=== PATIENT | female | born 1960 | race Caucasian/White ===

== ENCOUNTER 2017-06-26 22:59 | Emergency (ER) | payer BC ==
[2017-06-27] MEDS: NS 0.9% 1000 ML* 2,000 ML IV ONE ×2 (03:57→05:10)
[2017-06-27 04:11] LABS: Hematocrit 39 % (35-47); Hemoglobin 12.9 g/dl (12.0-16.0); Mean Corpuscular HGB Conc 33 g/dl (31-36); Mean Corpuscular Hemoglobin 29 pg (27-31); Mean Corpuscular Volume 89 fL (80-97); Mean Platelet Volume 8 um3 (7.4-10.4); Red Blood Count 4.39 10^6/ul (4.0-5.4); Red Cell Distribution Width 14 % (10.5-15); White Blood Count 6.1 10^3/ul (3.5-10.8)
[2017-06-27] MEDS ORDERED: Ibuprofen TAB* 600 MG PO ONE (04:11)
[2017-06-27] MEDS ORDERED: Ibuprofen TAB* 600 MG ONE (04:13)
[2017-06-27 04:21] LABS: ALT 18 U/L (7-52); AST 17 U/L (13-39); Albumin 4.1 g/dL (3.2-5.2); Alkaline Phosphatase 70 U/L (34-104); Amylase 31 U/L (29-103); Anion Gap 7 mmol/L (2-11); BUN/Creatinine Ratio 17.6 (8-20); Blood Urea Nitrogen 13 mg/dL (6-24); C Reactive Protein < 1.00 mg/L (< 5.00); CO2 Carbon Dioxide 27 mmol/L (22-32); Calcium 9.1 mg/dL (8.6-10.3); Chloride 105 mmol/L (101-111); EGFR Non-African American 80.9 (>60); Globulin 2.4 g/dL (2-4); Glucose 107 mg/dL (70-100); Lipase 15 U/L (11.0-82.0); Potassium 3.5 mmol/L (3.5-5.0); Sodium 139 mmol/L (133-145); Total Protein 6.5 g/dL (6.4-8.9)
[2017-06-27 04:28] LABS: Urine Bacteria Absent (Absent)
[2017-06-27 04:30] LABS: Urine Bilirubin Negative (Negative); Urine Glucose N (Negative); Urine Nitrite N (Negative)
[2017-06-27] MEDS ORDERED: Iohexol 300* (CONTRAST) 10 ML SDV IV ONE (05:41)
[2017-06-27 06:01] VITALS: BP 114/77
--- NOTE | 2017-06-27 07:41 | ED ---
Jos Red Rebecca, scribed for Santos Flores MD on 06/27/17 at 0305 . Abdominal Pain/Female - HPI Summary HPI Summary: Pt is a 57 y/o F who presents to ED c/o lower abdominal pain. Pain began 3 weeks ago and has been intermittent since onset, typically worse at night. Pain was previously severe, ranked 10/10, though pain has now improved. Patient states that the pain is not always in the same spot, describing the location as "if it is in my stomach, it moves down into my intestines" without radiation to the back. Sx aggravated and alleviated by nothing, unchanged by walking. Additionally c/o abdominal bloating, chills and low grade fever. Denies blood in stool, CP, SOB and dysuria. Last colonoscopy was 7 years ago. No recent illness. Allergies to Sulfa, Amoxicillin and Niacin. - History of Current Complaint Chief Complaint: EDAbdPain Stated Complaint: LOWER ABD PAIN Hx Obtained From: Patient Onset/Duration: Lasting Weeks - 3 weeks, Still Present Timing: Intermittent Episode Lasting Severity Currently: Severe Pain Intensity: 10 Pain Scale Used: 0-10 Numeric Location: Other - Lower abdomen Character: Sharp Aggravating Factor(s): Nothing Alleviating Factor(s): Nothing Associated Signs and Symptoms: Positive: Fever, Other: - Abdominal bloating. Negative: Nausea, Vomiting, Diarrhea Allergies/Adverse Reactions: Allergies Allergy/AdvReac Type Severity Reaction Status Date / Time Pineapple Allergy Intermediate throat Verified 02/24/13 07:47 itchy Amoxicillin Allergy Mild Rash Verified 02/24/13 07:47 Niacin Allergy Mild Flushing Verified 02/24/13 07:47 Sulfa Drugs Allergy Mild Rash Verified 02/24/13 07:47 honeydew Allergy Intermediate throat Uncoded 02/24/13 07:47 itchy bees Allergy local Uncoded 02/24/13 07:47 reaction PMH/Surg Hx/FS Hx/Imm Hx Endocrine/Hematology History: Denies: Hx Diabetes, Hx Thyroid Disease Cardiovascular History: Denies: Hx Hypertension Respiratory History: Denies: Hx Asthma, Hx Chronic Obstructive Pulmonary Disease (COPD) GI History: Denies: Hx Diverticulosis, Hx Ulcer Musculoskeletal History: Denies: Hx Rheumatoid Arthritis, Hx Osteoporosis - OSTEOPENIA - [facility] History [facility] [place] Infectious Disease History: No Infectious Disease History: Denies: Hx Hepatitis, Hx Human Immunodeficiency Virus (HIV), Traveled Outside the [place] in Last 30 Days - Family History Known Family History: Positive: Other - No FHx IBS, Crohn's or ulcerative colitis - Social History Alcohol Use: Daily Substance Use Type: Reports: None Smoking Status (MU): Never Smoked Tobacco Review of Systems Positive: Fever, Chills Negative: Chest Pain Negative: Shortness Of Breath Positive: Abdominal Pain, Other - Abdominal bloating; NEGATIVE: Blood in stool. Negative: Vomiting, Diarrhea, Nausea Negative: dysuria All Other Systems Reviewed And Are Negative: Yes Physical Exam - Summary Physical Exam Summary: The patient is well-nourished in no acute distress and in no acute pain. The skin is warm and dry and skin color reflects adequate perfusion. HEENT: The head is normocephalic and atraumatic. The pupils are equal and reactive. The conjunctivae are clear and without drainage. Nares are patent and without drainage. Mouth reveals moist mucous membranes and the throat is without erythema and exudate. The external ears are intact. The ear canals are patent and without drainage. The tympanic membranes are intact. Neck is supple with full range of motion and non-tender. Respiratory: Chest is non-tender. Lungs are clear to auscultation and breath sounds are symmetrical and equal. Cardiovascular: Hear is regular rate and rhythm. There is no murmur or rub auscultated. There is no peripheral edema and pulses are symmetrical and equal. Abdomen: The abdomen is soft with marked tenderness in the RLQ and LLQ. to palpation, no tenderness to percussion. No pain with flexion of the knee. There are hyperactive bowel sounds heard in all four quadrants and there is no organomegaly palpated. Musculoskeletal: There is no back pain noted and no CVA tenderness. Extremities are non-tender with full range of motion. There is good capillary refill. There is no peripheral edema or calf tenderness elicited. Neurological: Patient is alert and oriented to person, place and time. The patient has symmetrical motor strength in all four extremities. Psychiatric: The patient has an appropriate affect and does not exhibit any anxiety or depression. Triage Information Reviewed: Yes Vital Signs On Initial Exam: Initial Vitals Temp Pulse Resp BP Pulse Ox 97.2 F 62 20 127/85 100 06/26/17 23:12 06/26/17 23:12 06/26/17 23:12 06/26/17 23:12 06/26/17 23:12 Vital Signs Reviewed: Yes Diagnostics - Vital Signs Vital Signs Temp Pulse Resp BP Pulse Ox 06/27/17 01:33 97.8 F 56 125/82 100 06/26/17 23:12 97.2 F 62 20 127/85 100 - Laboratory Lab Results: Lab Results 06/27/17 06/27/17 06/27/17 Range/Units 03:20 03:55 03:55 WBC 6.1 (3.5-10.8) 10^3/ul RBC 4.39 (4.0-5.4) 10^6/ul Hgb 12.9 (12.0-16.0) g/dl Hct 39 (35-47) % MCV 89 (80-97) fL MCH 29 (27-31) pg MCHC 33 (31-36) g/dl RDW 14 (10.5-15) % Plt Count 203 (150-450) 10^3/ul MPV 8 (7.4-10.4) um3 Neut % (Auto) 74.7 (38-83) % Lymph % (Auto) 17.9 L (25-47) % [place] % (Auto) 5.8 (1-9) % Eos % (Auto) 1.1 (0-6) % Baso % (Auto) 0.5 (0-2) % Absolute Neuts (auto) 4.5 (1.5-7.7) 10^3/ul Absolute Lymphs (auto) 1.1 (1.0-4.8) 10^3/ul Absolute Monos (auto) 0.3 (0-0.8) 10^3/ul Absolute Eos (auto) 0.1 (0-0.6) 10^3/ul Absolute Basos (auto) 0 (0-0.2) 10^3/ul Absolute Nucleated RBC 0 10^3/ul Nucleated RBC % 0 Sodium 139 (133-145) mmol/L Potassium 3.5 (3.5-5.0) mmol/L Chloride 105 (101-111) mmol/L Carbon Dioxide 27 (22-32) mmol/L Anion Gap 7 (2-11) mmol/L BUN 13 (6-24) mg/dL Creatinine 0.74 (0.51-0.95) mg/dL Est GFR ( Amer) 104.0 (>60) Est GFR (Non-Af Amer) 80.9 (>60) BUN/Creatinine Ratio 17.6 (8-20) Glucose 107 H (70-100) mg/dL Lactic Acid (0.5-2.0) mmol/L Calcium 9.1 (8.6-10.3) mg/dL Total Bilirubin 0.50 (0.2-1.0) mg/dL AST 17 (13-39) U/L ALT 18 (7-52) U/L Alkaline Phosphatase 70 (34-104) U/L C-Reactive Protein < 1.00 (< 5.00) mg/L Total Protein 6.5 (6.4-8.9) g/dL Albumin 4.1 (3.2-5.2) g/dL Globulin 2.4 (2-4) g/dL Albumin/Globulin Ratio 1.7 (1-3) Amylase 31 (29-103) U/L Lipase 15 (11.0-82.0) U/L Urine Color Straw Urine Appearance Clear Urine pH 5 (5-9) Ur Specific Isabel 1.010 (1.010-1.030) Urine Protein N (Negative) Urine Ketones Negative (Negative) Urine Blood N (Negative) Urine Nitrate N (Negative) Urine Bilirubin Negative (Negative) Urine Urobilinogen N (Negative) Ur Leukocyte Esterase Negative (Negative) Urine WBC (Auto) Trace(0-5/hpf) (Absent) Urine RBC (Auto) Trace(0-2/hpf) (Absent) Urine Bacteria Absent (Absent) Urine Glucose N (Negative) Urine Ascorbic Acid N (Negative) 06/27/17 Range/Units 03:55 WBC (3.5-10.8) 10^3/ul RBC (4.0-5.4) 10^6/ul Hgb (12.0-16.0) g/dl Hct (35-47) % MCV (80-97) fL MCH (27-31) pg MCHC (31-36) g/dl RDW (10.5-15) % Plt Count (150-450) 10^3/ul MPV (7.4-10.4) um3 Neut % (Auto) (38-83) % Lymph % (Auto) (25-47) % [place] % (Auto) (1-9) % Eos % (Auto) (0-6) % Baso % (Auto) (0-2) % Absolute Neuts (auto) (1.5-7.7) 10^3/ul Absolute Lymphs (auto) (1.0-4.8) 10^3/ul Absolute Monos (auto) (0-0.8) 10^3/ul Absolute Eos (auto) (0-0.6) 10^3/ul Absolute Basos (auto) (0-0.2) 10^3/ul Absolute Nucleated RBC 10^3/ul Nucleated RBC % Sodium (133-145) mmol/L Potassium (3.5-5.0) mmol/L Chloride (101-111) mmol/L Carbon Dioxide (22-32) mmol/L Anion Gap (2-11) mmol/L BUN (6-24) mg/dL Creatinine (0.51-0.95) mg/dL Est GFR ( Amer) (>60) Est GFR (Non-Af Amer) (>60) BUN/Creatinine Ratio (8-20) Glucose (70-100) mg/dL Lactic Acid 0.7 (0.5-2.0) mmol/L Calcium (8.6-10.3) mg/dL Total Bilirubin (0.2-1.0) mg/dL AST (13-39) U/L ALT (7-52) U/L Alkaline Phosphatase (34-104) U/L C-Reactive Protein (< 5.00) mg/L Total Protein (6.4-8.9) g/dL Albumin (3.2-5.2) g/dL Globulin (2-4) g/dL Albumin/Globulin Ratio (1-3) Amylase (29-103) U/L Lipase (11.0-82.0) U/L Urine Color Urine Appearance Urine pH (5-9) Ur Specific Isabel (1.010-1.030) Urine Protein (Negative) Urine Ketones (Negative) Urine Blood (Negative) Urine Nitrate (Negative) Urine Bilirubin (Negative) Urine Urobilinogen (Negative) Ur Leukocyte Esterase (Negative) Urine WBC (Auto) (Absent) Urine RBC (Auto) (Absent) Urine Bacteria (Absent) Urine Glucose (Negative) Urine Ascorbic Acid (Negative) Result Diagrams: 06/27/17 03:55 06/27/17 03:55 Lab Statement: Any lab studies that have been ordered have been reviewed, and results considered in the medical decision making process. Abdominal Pain Fem Course/Dx - Course Course Of Treatment: Pt is a 57 y/o F who presents to ED c/o lower abdominal pain. Pain began 3 weeks ago and has been intermittent since onset, typically worse at night. Pain was previously severe, ranked 10/10, though pain has now improved. Patient states that the pain is not always in the same spot, describing the location as "if it is in my stomach, it moves down into my intestines" without radiation to the back. Sx aggravated and alleviated by nothing, unchanged by walking. Additionally c/o abdominal bloating, chills and low grade fever. Denies blood in stool, CP, SOB and dysuria. Last colonoscopy was 7 years ago. No recent illness. Allergies to Sulfa, Amoxicillin and Niacin. UA negative for UTI. In the ED course, pt received fluids and motrin. Pt will be signed out ot Dr. Stahl, pending disposition, awaiting CT Abd/Pel. Elevated BP noted and advised to f/u with PCP. - Diagnoses Differential Diagnosis: Positive: Appendicitis, Bowel Obstruction, Constipation , Diverticulitis, Irritable Bowel Syndrome, Peptic Ulcer Disease Provider Diagnoses: Abdominal pain Discharge - Discharge Plan Condition: Stable Disposition: OTHER Discharge Disposition Comment: Pt will be signed out to Dr. Braswell, pending dispo , awaiting CT Abd/Pel Referrals: Consuelo Geiger [employer] [Primary Care Provider] - The documentation as recorded by the Jos browne Rebecca accurately reflects the service I personally performed and the decisions made by me, Santos Flores MD.
--- NOTE | 2017-06-27 08:27 | RAD ---
CLINICAL HISTORY: Bilateral lower quadrant pain, colitis, appendicitis COMPARISON: None TECHNIQUE: Multiple contiguous axial CT scans were obtained of the abdomen and pelvis after the administration of intravenous contrast. Coronal and sagittal multiplanar reformations are submitted for review. Oral contrast was administered. Delayed images were obtained through the abdomen and pelvis. FINDINGS: LUNG BASES: The lung bases are clear. LIVER: There is a simple cyst of the right lobe of liver. The liver measures 21 cm in long axis. BILE DUCTS: There is no intrahepatic or extrahepatic biliary dilatation. GALLBLADDER: The gallbladder is normal, without pericholecystic inflammatory change. PANCREAS: The pancreas is normal, without mass or ductal dilatation. SPLEEN: Normal in size and appearance. UPPER GI TRACT: Evaluation of the gastrointestinal tract is limited by incomplete gastric distention. The upper GI tract is unremarkable. SMALL BOWEL AND MESENTERY: The small bowel is normal in contour, course, and caliber. There is no obstruction or dilatation. COLON: The colon is normal in contour, course, caliber. There is no pericolonic inflammatory change. The appendix is not clearly visualized. ADRENALS: Normal bilaterally. KIDNEYS: The kidneys are normal in shape, size, contour, and axis. There is no hydronephrosis or nephrolithiasis. BLADDER: The bladder is smooth in contour. PELVIC ORGANS: The uterus is fibroid AORTA: The aorta is normal. IVC: Unremarkable LYMPH NODES: There is no lymphadenopathy by size criteria. ABDOMINAL WALL: There is no evidence for abdominal wall hernia. BONES AND SOFT TISSUES: There are mild diffuse degenerative changes. OTHER: None IMPRESSION: 1. FIBROID UTERUS. 2. THE APPENDIX IS NOT CLEARLY VISUALIZED. 3. HEPATOMEGALY.
--- NOTE | 2017-06-27 13:57 | ED ---
Eros Red Angela, scribed for Alexandre Stahl MD on 06/27/17 at 0721 . Progress - Progress Note Progress Note: Pt is a 57 y/o female who presents to ED c/o intermittent lower abdominal pain x3 weeks. Pt notes her pain is not always on one spot, it travels. This pt was signed out from Dr. Flores, pending disposition, awaiting CT abdomen/ pelvis. Pt will be discharged to home in stable condition with a diagnosis of abdominal pain. - Results/Orders Results/Orders: CT abd/pel IMPRESSION: No bowel obstructions, colitis, diverticulitis, free fluid or free air. Appendix not seen. No pericecal inflammation to suggest acute appendicitis. Unremarkable pancreas, kidneys, and gallbladder. Small probably right hepatic cyst. Hepatomegaly. Small calcified uterine fibroid. ED physician has reviewed this radiology report and agrees. Re-Evaluation - Re-Evaluation First Eval Re-Evaluation Time: 08:08 Comment: I reviewed the CT results with the pt. I spoke to her about following up with GI. Pt agrees with the plan and will be discharged. Course/Dx - Course Course Of Treatment: Pt is a 57 y/o female who presents to ED c/o intermittent lower abdominal pain x3 weeks. Pt notes her pain is not always on one spot, it travels. This pt was signed out from Dr. Flores to follow up on CT abdomen/ pelvis. CT results show no bowel obstructions, colitis, diverticulitis, free fluid or free air. Appendix not seen. No pericecal inflammation to suggest acute appendicitis. Since the bloodwork and the CT are both negative, as per Dr. Flores's recommendations, pt will be discharged to home and is advised to follow up with her PCP. Additionally, I believe the pt will benefit from a GI consult. The pt will be given a referral to GI. Pt is hemodynamically stable, alert and oriented x3. - Diagnoses Provider Diagnoses: Abdominal pain The documentation as recorded by the Eros browne Angela accurately reflects the service I personally performed and the decisions made by me, Alexandre Stahl MD.
== END 2017-06-27 09:55 ==
LOC: ED 22:59
DX: R10.30 Lower abdominal pain, unspecified (principal)
CPT/HCPCS: 36415; 74177; 80053; 81003; 82150; 83605; 83690; 85025; 86140; 99283; A9270-GY; Q9967

== ENCOUNTER 2017-11-08 17:55 | Emergency (ER) | payer BC | END 2017-11-08 20:07 | disposition left against medical advice (07) | LOC: UCEAST 17:55 | DX: J11.1 Influenza due to unidentified influenza virus with other respiratory manifestations (principal); Z53.21 Procedure and treatment not carried out due to patient leaving prior to being seen by health care provider ==

== ENCOUNTER → 2018-08-07 08:38 | Emergency (ER) | payer BC ==
[~2018-08-07 08:38] MED LIST: Ibuprofen TAB* 600 MG PO ONE
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
--- OUTSIDE RECORDS SUMMARY | 2018-08-07 09:13 | XMS REPORT ---
:1960 External Reference #:[id number] Author Organization [employer] Address [address] [place] [address] Phone [phone] Care Team Providers Name Role Phone Jackeline Early MD Primary Care Physician Unavailable Payers Type Date Identification Numbers Payment Provider Subscriber Commercial Policy Number: [id number] [employer]ets Yadi Putnam PayID: [id number] [address] [address] JOAN Kim [id number] [employer] Part B Expires: 2012 Policy Number: [facility] Y[facility] Putnam [id number] Group Name: Ppo [address] [address] PayID: [id number] JOAN Person [id number] Workers Onset: 2012 Policy Number: [place] [employer] Yadi Benson Compensation [id number] [facility] Sandra PayID: [id number] [address] [address] Advance Directives Type Date Description Status Comment Other Directive 05/20/2017 Health Care Proxy Current and Verified Problems Date Description Provider Status Onset: 10/31/2011 Depressive disorder Consuelo Geiger N.P. Active Note: ' ''''' Onset: 06/03/2015 Obstructive sleep apnea syndrome Akila Mondragon MD Active Family History Date Family Member(s) Problem(s) Comments General MGP cancer General ALS General Rheumatoid Arthritis General Heart Disease Father CAD CABG, 2 Vessel (78), Macular Degeneration, Glaucoma, COPD, Renal Failure age 87 Mother ALS Age 78 Mother due to ALS () - Thyroid Disease Children 1 Son - Healthy age 12 Siblings 2 1 Sister - Thyroid Disease, Leiden Factor II age 65 1 Brother - Healthy age 67 Social History Type Date Description Comments Marital Status Lives With other Occupation [employer] Director Cigarette Use Quit 35 Years Ago ETOH Use Occasionally consumes alcohol Smoking Patient is a former smoker 2 years, 1/2 pack a day Recreational Drug Use Denies Drug Use Daily Caffeine Consumes on average 2 cups of regular coffee per day Exercise Type/Frequency Exercises regularly 3 - 4 days weekly Allergies, Adverse Reactions, Alerts Date Description Reaction Status Severity Comments 07/21/2010 Sulfa active 07/21/2010 Amoxicillin active 04/02/2012 Niacin Urticaria active Severe Medications Medication Date Status Form Strength Qnty SIG Indications Ordering Provider Vagifem 07/15 Active Tablets 10mcg 24tab apply 1 Z01.419 s insert Varn, N.P. vaginally twice a week (with applicato r) Fluconazole 07/02 Active Tablets 150mg 2tabs one by N39.0 mouth february Varn, N.P. repeat in 3 days as needed Epipen 2-Stewart 04/27 Active Solution 0.3mg/0.3 2unit sc as Auto-Inject ML s needed Varn, N.P. Citalopram 11/27 Active Tablets 20mg 45tab Take One Consuelo Hydrobromid s And Varn, N.P. One-Half Tablet By Mouth Every Day Ambien 05/29 Active Tablets 10mg 20tab take 1/2 s to 1 Varn, N.P. tablets by mouth at bedtime as needed for insomnia (max of 1 per day ) Valtrex Active Tablets 1gm 21tab take two Jackeline s tablets Cotton, by mouth M.D. twice a day as needed Dextroamphetamine Active Tablets 5mg 60tab one by s mouth Varn, N.P. twice a day Vivotif 10/[address] 4caps one by mouth Varn, N.P. - every 11/10 other for 4 doses Ciprofloxacin HCL 07/02 Hx Tablets 250mg 14tab one by N39.0 s mouth Varn, N.P. - twice a 07/09 day for days Ranitidine HCL 06/20 Hx Tablets 150mg 60tab take one s tablet by Varn, N.P. - mouth 03/12 twice a day Omeprazole 06/[address] 20mg 30cap 1 by K29.00 s mouth Varn, N.P. - every day 06/20 Azithromycin 07/07 Hx Tablets 250mg 6tabs 2 tabs by Alexy mouth Eliezer, TELECOMMUNICATOR - every day 09/21 x1 day, tab by mouth every day x 4 days Fluconazole 07/07 Hx Tablets 150mg 2tabs one by 461.9 Alexy mouth february Eliezer TELECOMMUNICATOR - repeat in 09/21 3 days as needed Cheratussin ac 07/04 Hx Syrup 100-10mg/ 118ml take 5-10 J06.9 Alexy 5ML millilite DAMIEN Martins - rs every 07/06 4-6 hours /2014 as needed for cough. Fluticasone 07/04 Hx Suspension 50mcg/Act 16uni 2 sprays J06.9 Alexy Propionate ts each Eliezer TELECOMMUNICATOR - nostril 07/06 qd. /2014 Azithromycin 09/11 Hx Tablets 250mg 6tabs two tabs 461.9 Consuelo /2013 day one, Varn, N.P. - one daily 09/21 till Fluconazole 09/11 Hx Tablets 150mg 2tabs one by 461.9 Consuelo /2013 mouth february Varn, N.P. - repeat in 09/17 3 days as needed Fluticasone 09/11 Hx Suspension 50mcg/Act 16gm 2 sprays 461.9 Consuelo Propionate each Varn, N.P. - nostril 09/25 daily needed Benzonatate 08/28 Hx Capsules 100mg 30cap one by 465.9 Consuelo /2013 s mouth Varn, N.P. - three 09/11 times daily as needed for cough Cyclobenzaprine 01/01 Hx Tablets 5mg 30tab 1 tab po 719.48 Phyllis HCL /2012 s qhs Lin, - N.P. 04/27 Azithromycin 07/03 Hx Tablets 250mg 6tabs two tabs 466.0 Leslie day one, Peg, - one daily M.D., FACP 07/06 till Flovent HFA 07/03 Hx Aerosol 44mcg/Act 1unit 2 puffs 466.0 s twice Peg, - daily for M.D., [facility] 07/10 10 Bupropion HCL 04/07 Hx Tablets 75mg 90tab Take One 311 s Tablet By Peg, - Mouth M.D., [facility] 07/03 Once Daily Bupropion HCL XL 04/02 Hx Tablets ER 150mg 90tab 1 every 311 24HR s day every Peg, - morning M.D., [facility] 04/07 Triamcinolone 01/13 Hx Cream 0.1% 30uni Apply 782.1 Jackeline Acet ts Externall Shartah, - y To M.DJace 01/26 Area(S) Two Times A Day Until Clear Ciprofloxacin HCL 05/10 Hx Tablets 250mg 6tabs one po 599.0 bid for 3 Peg, - days M.D., [facility] 10/31 Citalopram 05/10 Hx Tablets 40mg 30tab 1 po qd 300.00 Leslie Hydrobromide s Lexi Ruvalcaba M.D., [facility] 10/31 Triamcinolone 08/02 Hx Ointment 0.5% 60gm apply bid Leslie Acetonide prn Lexi Ruvalcaba M.D., [facility] 01/13 Triamcinolone 07/24 Hx Cream 0.1% 60gm apply tid Leslie Cream /2009 Lexi Ruvalcaba M.D., [facility] 08/02 Prempro Hx Tablets 0.3-1.5mg 74tab 1 tablet Jackeline /0000 s every Cotton, - other day M.D. 07/24 Celexa Hx Tablets 20mg 45tab 1 1/2 Leslie / s tablets Peg, - daily M.DJace, [facility] 11/27 Vyvanse 00/ Hx Unknown /0000 - 05/15 Dicyclomine HCL Hx Tablets 20mg 1 by Unknown /0000 mouth up - to 4 03/12 times a day as needed Immunizations CPT Code Status Date Vaccine Reaction Lot # [id number] Given 07/15/2018 Tdap - No immediate [id number] Tetanus/Diptheria/Acellular reaction...jh Pertussis [id number] Given 01/27/2015 Fluvirin Im 3Yrs And Older [id number] Given 06/18/2007 Varicella (Chicken Pox) Immunization 14695 Given 06/18/2007 Varicella (Chicken Pox) Immunization 08731 Given 06/18/2007 Tdap - Tetanus/Diptheria/Acellular Pertussis Vital Signs Date Vital Result Comment 07/15/2018 Height 65 inches 5'5" Weight 152.00 lb Heart Rate 63 /min BP Systolic 101 mmHg BP Diastolic 62 mmHg Body Temperature 97.4 F O2 % BldC Oximetry 96 % BMI (Body Mass Index) 25.3 kg/m2 06/26/2018 Height 65 inches 5'5" Weight 154.00 lb Heart Rate 82 /min BP Systolic 100 mmHg BP Diastolic 60 mmHg Body Temperature 96.9 F O2 % BldC Oximetry 97 % BMI (Body Mass Index) 25.6 kg/m2 03/12/2018 Weight 154.00 lb Heart Rate 74 /min BP Systolic 110 mmHg BP Diastolic 64 mmHg Body Temperature 97.7 F O2 % BldC Oximetry 97 % 12/10/2017 Height 65 inches 5'5" Weight 152.00 lb Heart Rate 64 /min BP Systolic Sitting 120 mmHg Rue regular cuff BP Diastolic Sitting 74 mmHg Rue regular cuff Respiratory Rate 20 /min O2 % BldC Oximetry 98 % BMI (Body Mass Index) 25.3 kg/m2 07/02/2017 Weight 146.50 lb Heart Rate 76 /min BP Systolic 126 mmHg BP Diastolic 80 mmHg Body Temperature 98.6 F O2 % BldC Oximetry 96 % 06/27/2017 Weight 151.00 lb Heart Rate 75 /min BP Systolic 120 mmHg BP Diastolic 80 mmHg Body Temperature 98.0 F O2 % BldC Oximetry 97 % 06/14/2017 Weight 148.50 lb Heart Rate 68 /min BP Systolic 108 mmHg BP Diastolic 68 mmHg Body Temperature 97.8 F O2 % BldC Oximetry 97 % 05/20/2017 Weight 150.75 lb Heart Rate 68 /min BP Systolic 112 mmHg BP Diastolic 68 mmHg Body Temperature 97.0 F O2 % BldC Oximetry 98 % 05/01/2017 Height 64 inches 5'4" Weight 150.00 lb Heart Rate 64 /min BP Systolic 110 mmHg BP Diastolic 72 mmHg Respiratory Rate 15 /min Body Temperature 97.2 F Pain Level 5 BMI (Body Mass Index) 25.7 kg/m2 11/23/2016 Weight 149.00 lb Heart Rate 75 /min BP Systolic 132 mmHg BP Diastolic 94 mmHg O2 % BldC Oximetry 99 % 09/21/2016 Height 64 inches 5'4" Weight 154.00 lb Heart Rate 72 /min BP Systolic Sitting 118 mmHg BP Diastolic Sitting 70 mmHg Respiratory Rate 15 /min Body Temperature 97.8 F O2 % BldC Oximetry 98 % BMI (Body Mass Index) 26.4 kg/m2 07/15/2015 Heart Rate 70 /min BP Systolic Sitting 122 mmHg BP Diastolic Sitting 68 mmHg Respiratory Rate 16 /min O2 % BldC Oximetry 98 % 07/04/2015 Height 64 inches 5'4" Weight 145.00 lb Heart Rate 62 /min BP Systolic 109 mmHg BP Diastolic 72 mmHg Body Temperature 98.4 F O2 % BldC Oximetry 97 % BMI (Body Mass Index) 24.9 kg/m2 06/03/2015 Heart Rate 73 /min BP Systolic 98 mmHg BP Diastolic 70 mmHg Respiratory Rate 14 /min O2 % BldC Oximetry 98 % 02/02/2015 Height 65 inches 5'5" Weight 148.38 lb Heart Rate 90 /min BP Systolic Sitting 108 mmHg BP Diastolic Sitting 78 mmHg Body Temperature 98.2 F O2 % BldC Oximetry 99 % BMI (Body Mass Index) 24.7 kg/m2 01/27/2015 Height 65 inches 5'5" Weight 151.00 lb Heart Rate 67 /min BP Systolic Sitting 130 mmHg BP Diastolic Sitting 72 mmHg Respiratory Rate 18 /min Body Temperature 97.5 F O2 % BldC Oximetry 98 % BMI (Body Mass Index) 25.1 kg/m2 Neck Circumference in inches 13.5 12/22/2014 Height 64.75 inches 5'4.75" Weight 153.00 lb Heart Rate 68 /min BP Systolic Sitting 102 mmHg BP Diastolic Sitting 64 mmHg Body Temperature 96.8 F BMI (Body Mass Index) 25.7 kg/m2 08/02/2014 Height 64.75 inches 5'4.75" Weight 151.00 lb Heart Rate 68 /min BP Systolic Sitting 108 mmHg BP Diastolic Sitting 60 mmHg Body Temperature 97.3 F BMI (Body Mass Index) 25.3 kg/m2 09/11/2013 Weight 155.00 lb Heart Rate 70 /min BP Systolic Sitting 120 mmHg BP Diastolic Sitting 78 mmHg Body Temperature 98.3 F O2 % BldC Oximetry 99 % 08/28/2013 Weight 149.00 lb Heart Rate 80 /min BP Systolic Sitting 124 mmHg BP Diastolic Sitting 82 mmHg Body Temperature 99.1 F 04/27/2013 Weight 148.00 lb Heart Rate 78 /min BP Systolic Sitting 110 mmHg BP Diastolic Sitting 70 mmHg Body Temperature 97.5 F 01/06/2013 Height 64.75 inches 5'4.75" Weight 148.00 lb Heart Rate 82 /min BP Systolic Sitting 112 mmHg BP Diastolic Sitting 68 mmHg BMI (Body Mass Index) 24.8 kg/m2 01/01/2013 Height 65 inches 5'5" Weight 147.00 lb Heart Rate 80 /min BP Systolic Sitting 120 mmHg BP Diastolic Sitting 68 mmHg BMI (Body Mass Index) 24.5 kg/m2 11/27/2012 Height 65.5 inches 5'5.50" Weight 152.25 lb Heart Rate 64 /min BP Systolic Sitting 100 mmHg BP Diastolic Sitting 60 mmHg BMI (Body Mass Index) 24.9 kg/m2 07/03/2012 Height 65.5 inches 5'5.50" Weight 148.75 lb Heart Rate 70 /min BP Systolic Sitting 110 mmHg BP Diastolic Sitting 60 mmHg Body Temperature 98.4 F BMI (Body Mass Index) 24.4 kg/m2 04/08/2012 Height 65.5 inches 5'5.50" Weight 150.00 lb Heart Rate 72 /min BP Systolic Sitting 100 mmHg BP Diastolic Sitting 60 mmHg BMI (Body Mass Index) 24.6 kg/m2 04/02/2012 Height 65.5 inches 5'5.50" Weight 151.50 lb Heart Rate 70 /min BP Systolic Sitting 110 mmHg BP Diastolic Sitting 62 mmHg Body Temperature 98.7 F BMI (Body Mass Index) 24.8 kg/m2 02/27/2012 Height 65.5 inches 5'5.50" Weight 150.00 lb Heart Rate 72 /min BP Systolic Sitting 122 mmHg BP Diastolic Sitting 78 mmHg BMI (Body Mass Index) 24.6 kg/m2 01/14/2012 Height 65.5 inches 5'5.50" Weight 149.00 lb Heart Rate 68 /min BP Systolic Sitting 96 mmHg BP Diastolic Sitting 56 mmHg BMI (Body Mass Index) 24.4 kg/m2 11/19/2011 Height 65.5 inches 5'5.50" Weight 152.00 lb Heart Rate 84 /min BP Systolic Sitting 97 mmHg BP Diastolic Sitting 58 mmHg BMI (Body Mass Index) 24.9 kg/m2 11/13/2011 Height 65.5 inches 5'5.50" Weight 150.00 lb Heart Rate 78 /min BP Systolic Sitting 128 mmHg BP Diastolic Sitting 74 mmHg BMI (Body Mass Index) 24.6 kg/m2 10/31/2011 Height 65.5 inches 5'5.50" Weight 149.00 lb Heart Rate 68 /min BP Systolic Standing 112 mmHg BP Diastolic Standing 70 mmHg BMI (Body Mass Index) 24.4 kg/m2 05/10/2011 Height 65.5 inches 5'5.50" Weight 148.00 lb Heart Rate 72 /min BP Systolic Sitting 110 mmHg BP Diastolic Sitting 60 mmHg Body Temperature 98.4 F BMI (Body Mass Index) 24.3 kg/m2 08/02/2010 Heart Rate 64 /min BP Systolic 118 mmHg BP Diastolic 70 mmHg Body Temperature 98.6 F 07/24/2010 Heart Rate 62 /min BP Systolic Sitting 120 mmHg BP Diastolic Sitting 74 mmHg Body Temperature 98.2 F Results Test Date Test Result H/L Range Note Herpes Simplex Type 1&2 06/30/2018 Herpes Simplex Virus I Positive Negative Igg IgG AB Herpes Simplex Virus II IgG AB Negative Negative 1 Laboratory test 06/30/2018 Herpes Simplex Igm Negative Negative 2 finding Screen Laboratory test 06/26/2018 Culture Genital & SEE RESULT BELOW 3, 4 finding Sensitivity Ua Routine 06/26/2018 Ua Specific [place] 1005 Ua PH 6 Ua Color yellow Ua Appera clear Ua WBC trace Ua Protein negative Ua Glucose negative Ua Ketones negative Ua Bilirubin negative Ua Urobilinogen negative Ua Nitrite negative Ua Occult Blood negative Urine Culture And 07/02/2017 Urine Culture SEE RESULT BELOW 5 Sensitivities Ua Routine 07/02/2017 Ua Specific [place] 1005 Ua PH 6 Ua Color yellow Ua Appera clear Ua WBC trace Ua Protein neg. Ua Glucose norm. Ua Ketones neg. Ua Bilirubin neg. Ua Urobilinogen norm. Ua Nitrite neg. Ua Occult Blood about 250 CBC Auto Diff 06/27/2017 White Blood Count 6.1 10^3/uL 3.5-10.8 Red Blood Count 4.39 10^6/uL 4.0-5.4 Hemoglobin 12.9 g/dL 12.0-16.0 Hematocrit 39 % 35-47 Mean Corpuscular Volume 89 fL 80-97 Mean Corpuscular Hemoglobin 29 pg 27-31 Mean Corpuscular HGB Conc 33 g/dL 31-36 Red Cell Distribution Width 14 % 10.5-15 Platelet Count 203 10^3/uL 150-450 Mean Platelet Volume 8 um3 7.4-10.4 Abs Neutrophils 4.5 10^3/uL 1.5-7.7 Abs Lymphocytes 1.1 10^3/uL 1.0-4.8 Abs Monocytes 0.3 10^3/uL 0-0.8 Abs Eosinophils 0.1 10^3/uL 0-0.6 Abs Basophils 0 10^3/uL 0-0.2 Abs Nucleated RBC 0 10^3/uL Granulocyte % 74.7 % 38-83 Lymphocyte % 17.9 % Low 25-47 Monocyte % 5.8 % 1-9 Eosinophil % 1.1 % 0-6 Basophil % 0.5 % 0-2 Nucleated Red Blood Cells % 0 Comp Metabolic Panel 06/27/2017 Sodium 139 mmol/L 133-145 Potassium 3.5 mmol/L 3.5-5.0 Chloride 105 mmol/L 101-111 Co2 Carbon Dioxide 27 mmol/L 22-32 Anion Gap 7 mmol/L 2-11 Glucose 107 mg/dL High 70-100 Blood Urea Nitrogen 13 mg/dL 6-24 Creatinine 0.74 mg/dL 0.51-0.95 BUN/Creatinine Ratio 17.6 8-20 Calcium 9.1 mg/dL 8.6-10.3 Total Protein 6.5 g/dL 6.4-8.9 Albumin 4.1 g/dL 3.2-5.2 Globulin 2.4 g/dL 2-4 Albumin/Globulin Ratio 1.7 1-3 Total Bilirubin 0.50 mg/dL 0.2-1.0 Alkaline Phosphatase 70 U/L 34-104 Alt 18 U/L 7-52 Ast 17 U/L 13-39 Egfr Non- 80.9 >60 Egfr 104.0 >60 6 Laboratory test finding 06/27/2017 Amylase 31 U/L 29-103 Lipase 15 U/L 11.0-82.0 C Reactive Protein < 1.00 mg/L < 5.00 7 Lactic Acid 0.7 mmol/L 0.5-2.0 8 Urinalysis Profile 06/27/2017 Urine White Blood Cell Trace(0-5/hpf) Absent Urine Red Blood Cell Trace(0-2/hpf) Absent Urine Bacteria Absent Absent Urine Color Straw Urine Appearance Clear Urine Specific [place] 1.010 1.010-1.030 Urine pH 5 5-9 Urine Urobilinogen N Negative Urine Ketones Negative Negative Urine Protein N Negative Urine Leukocytes Negative Negative Urine Blood N Negative * N Negative Urine Nitrite N Negative Urine Bilirubin Negative Negative Urine Glucose N Negative Laboratory test finding 06/14/2017 HIV 1&2 AB Self Nonreactive Nonreactive 9 Referred CBC Auto Diff 06/14/2017 White Blood Count 3.9 10^3/uL 3.5-10.8 Red Blood Count 4.51 10^6/uL 4.0-5.4 Hemoglobin 13.4 g/dL 12.0-16.0 Hematocrit 40 % 35-47 Mean Corpuscular Volume 89 fL 80-97 Mean Corpuscular Hemoglobin 30 pg 27-31 Mean Corpuscular HGB Conc 34 g/dL 31-36 Red Cell Distribution Width 13 % 10.5-15 Platelet Count 192 10^3/uL 150-450 Mean Platelet Volume 8 um3 7.4-10.4 Abs Neutrophils 2.3 10^3/uL 1.5-7.7 Abs Lymphocytes 1.1 10^3/uL 1.0-4.8 Abs Monocytes 0.3 10^3/uL 0-0.8 Abs Eosinophils 0.1 10^3/uL 0-0.6 Abs Basophils 0 10^3/uL 0-0.2 Abs Nucleated RBC 0 10^3/uL Granulocyte % 59.0 % 38-83 Lymphocyte % 28.9 % 25-47 Monocyte % 8.8 % 1-9 Eosinophil % 2.1 % 0-6 Basophil % 1.2 % 0-2 Nucleated Red Blood Cells % 0 Liver Function Panel 06/14/2017 Total Protein 6.7 g/dL 6.4-8.9 Albumin 4.4 g/dL 3.2-5.2 Globulin 2.3 g/dL 2-4 Albumin/Globulin Ratio 1.9 1-3 Total Bilirubin 0.80 mg/dL 0.2-1.0 Direct Bilirubin 0.10 mg/dL 0.03-0.18 Indirect Bilirubin 0.7 mg/dL 0.3-1.0 Alkaline Phosphatase 68 U/L 34-104 Alt 20 U/L 7-52 Ast 26 U/L 13-39 Laboratory test finding 06/14/2017 Amylase 33 U/L 29-103 Lipase 16 U/L 11.0-82.0 GC/Chlamydia Amplified Rna 02/19/2017 Chlamydia trachomatis Rna Negative Negative Neisseria gonorrhoeae (GC) Rna Negative Negative Laboratory test finding 11/24/2016 HIV 1&2 AB Self Nonreactive Nonreactive 10 Referred Syphillis Igg W/Reflex RPR Nonreactive Nonreactive 11 GC/Chlamydia Amplified Rna 11/24/2016 Chlamydia trachomatis Rna Negative Negative Neisseria gonorrhoeae (GC) Rna Negative Negative Liver Function Panel 10/26/2016 Total Protein 6.5 g/dL 6.4-8.9 Albumin 4.5 g/dL 3.2-5.2 Globulin 2.0 g/dL 2-4 Albumin/Globulin Ratio 2.3 1-3 Total Bilirubin 0.40 mg/dL 0.2-1.0 Direct Bilirubin 0.10 mg/dL 0.03-0.18 Indirect Bilirubin 0.3 mg/dL 0.3-1.0 Alkaline Phosphatase 69 U/L 34-104 Alt 17 U/L 7-52 Ast 16 U/L 13-39 Hepatitis Acute Panel 10/26/2016 Hepatitis C Antibody Nonreactive Nonreactive Hepatitis A AB Igm Nonreactive Nonreactive Hepatitis B Core AB Igm Nonreactive Nonreactive Hepatitis B Surface Ag Nonreactive Nonreactive Lipid Profile (Trig/Chol/HDL) 09/13/2016 Triglycerides 52 mg/dL 12, 13 Cholesterol 184 mg/dL 12, 14 HDL Cholesterol 88.1 mg/dL 12, 15 LDL Cholesterol 86 mg/dL 12, 16 Comp Metabolic Panel 09/13/2016 Sodium 138 mmol/L 133-145 12 Potassium 4.0 mmol/L 3.5-5.0 12 Chloride 104 mmol/L 101-111 12 Co2 Carbon Dioxide 29 mmol/L 22-32 12 Anion Gap 5 mmol/L 2-11 12 Glucose 88 mg/dL 70-100 12 Blood Urea Nitrogen 18 mg/dL 6-24 12 Creatinine 0.81 mg/dL 0.51-0.95 12 BUN/Creatinine Ratio 22.2 High 8-20 12 Calcium 8.9 mg/dL 8.6-10.3 12 Total Protein 6.5 g/dL 6.4-8.9 12 Albumin 4.2 g/dL 3.2-5.2 12 Globulin 2.3 g/dL 2-4 12 Albumin/Globulin Ratio 1.8 1-3 12 Total Bilirubin 0.70 mg/dL 0.2-1.0 12 Alkaline Phosphatase 72 U/L 34-104 12 Alt 30 U/L 7-52 12 Ast 70 U/L High 13-39 12 Egfr Non- 73.1 >60 12 Egfr 94.1 >60 12, 17 Laboratory test finding 05/16/2015 Troponin-I (TnI) 0.00 ng/mL <0.03 18 , 19 CBC Auto Diff 05/16/2015 White Blood Count 5.5 10^3/uL 4.8-10.8 Red Blood Count 4.43 10^6/uL 4.0-5.4 Hemoglobin 13.0 g/dL 12.0-16.0 Hematocrit 40 % 35-47 Mean Corpuscular Volume 91 fL 80-97 Mean Corpuscular Hemoglobin 29 pg 27-31 Mean Corpuscular HGB Conc 32 g/dL 31-36 Red Cell Distribution Width 14 % 10.5-15 Platelet Count 222 10^3/uL 150-450 Mean Platelet Volume 8 um3 7.4-10.4 Abs Neutrophils 3.4 10^3/uL 1.5-7.7 Abs Lymphocytes 1.5 10^3/uL 1.0-4.8 Abs Monocytes 0.4 10^3/uL 0-0.8 Abs Eosinophils 0.2 10^3/uL 0-0.6 Abs Basophils 0 10^3/uL 0-0.2 Abs Nucleated RBC 0.01 10^3/uL Granulocyte % 61.8 % 38-83 Lymphocyte % 26.8 % 25-47 Monocyte % 7.7 % 1-9 Eosinophil % 3.0 % 0-6 Basophil % 0.7 % 0-2 Nucleated Red Blood Cells % 0.1 Inr/Protime 05/16/2015 Inr 0.99 0.78-1.07 Laboratory test finding 05/16/2015 Partial Thrombo Time 34.7 seconds 26.0 -36.3 PTT Comp Metabolic Panel 05/16/2015 Sodium 138 mmol/L 133-145 Potassium 3.6 mmol/L 3.5-5.0 Chloride 103 mmol/L 101-111 Co2 Carbon Dioxide 28 mmol/L 22-32 Anion Gap 7 mmol/L 2-11 Glucose 93 mg/dL 70-100 Blood Urea Nitrogen 14 mg/dL 6-24 Creatinine 0.71 mg/dL 0.51-0.95 BUN/Creatinine Ratio 19.7 8-20 Calcium 9.3 mg/dL 8.6-10.3 Total Protein 6.9 g/dL 6.4-8.9 Albumin 4.4 g/dL 3.2-5.2 Globulin 2.5 g/dL 2-4 Albumin/Globulin Ratio 1.8 1-3 Total Bilirubin 0.30 mg/dL 0.2-1.0 Alkaline Phosphatase 69 U/L 34-104 Alt 16 U/L 7-52 Ast 19 U/L 13-39 Egfr Non- 85.5 >60 Egfr 109.9 >60 20 Laboratory test finding 05/16/2015 Creatine Kinase(CK) 169 U/L 10-223 Troponin-I (TnI) 0.00 ng/mL <0.03 21 CKMB 05/16/2015 CKMB ng/mL 3.5 ng/mL 0.6-6.3 Laboratory test finding 12/22/2014 Cytology RUN DATE: 12/23/ <SEE 22 NOTE> HPV Rna W/ Reflex Genotype Negative Negative 23 Laboratory test finding 12/22/2014 TSH (Thyroid Stimulating 2.18 IU/mL 0.34-5.60 Horm) Comp Metabolic Panel 12/16/2014 Sodium 138 mmol/L 133-145 24 Potassium 3.9 mmol/L 3.5-5.0 24 Chloride 106 mmol/L 101-111 24 Co2 Carbon Dioxide 28 mmol/L 22-32 24 Anion Gap 4 mmol/L 2-11 24 Glucose 89 mg/dL 70-100 24 Blood Urea Nitrogen 16 mg/dL 6-24 24 Creatinine 0.77 mg/dL 0.51-0.95 24 BUN/Creatinine Ratio 20.8 High 8-20 24 Calcium 8.6 mg/dL 8.6-10.3 24 Total Protein 6.1 g/dL Low 6.4-8.9 24 Albumin 4.3 g/dL 3.2-5.2 24 Globulin 1.8 g/dL Low 2-4 24 Albumin/Globulin Ratio 2.4 1-3 24 Total Bilirubin 0.40 mg/dL 0.2-1.0 24 Alkaline Phosphatase 64 U/L 34-104 24 Alt 17 U/L 7-52 24 Ast 17 U/L 13-39 24 Egfr Non- 78.1 >60 24 Egfr 100.5 >60 24, 25 Lipid Profile (Trig/Chol/HDL) 12/16/2014 Triglycerides 61 mg/dL 24, 26 Cholesterol 182 mg/dL 24, 27 HDL Cholesterol 72.8 mg/dL 24, 28 LDL Cholesterol 97 mg/dL 24, 29 CBC With Manual Diff 01/01/2013 White Blood Count 4.0 10^3/uL Low 4.8- 10.8 Red Blood Count 4.43 10^6/uL 4.0-5.4 Hemoglobin 13.0 g/dL 12.0-16.0 Hematocrit 40 % 35-47 Mean Corpuscular Volume 89 fL 80-97 Mean Corpuscular Hemoglobin 29 pg 27-31 Mean Corpuscular HGB Conc 33 g/dL 31-36 Red Cell Distribution Width 14 % 10.5-15 Platelet Count 188 10^3/uL 150-450 Mean Platelet Volume 9 um3 7.4-10.4 Abs Neutrophils 2.4 10^3/uL 1.5-7.7 Abs Lymphocytes 1.1 10^3/uL 1.0-4.8 Abs Monocytes 0.3 10^3/uL 0-0.8 Abs Eosinophils 0.1 10^3/uL 0-0.6 Abs Basophils 0 10^3/uL 0-0.2 Abs Nucleated RBC 0.01 10^3/uL Neutrophil % 56 % 38-83 Lymphocytes % 32 % 25-47 Monocytes % 8 % 0-13 Eosinophils % 2 % 0-6 Reactive Lymph % 2 % 0-6 RBC Morphology Normal Normal Laboratory test finding 01/01/2013 TSH (Thyroid Stimulating 2.14 miu/mL 0.34-5.60 Horm) Free T4 0.70 ng/mL 0.61-1.24 Laboratory test 11/19/2011 Cytology <SEE 30 finding NOTE> CBC No Diff 11/07/2011 White Blood Count 6.5 CUMM 4.8-10.8 Red Cell Count 4.47 CUMM 4.2-5.4 Hemoglobin 13.3 g/dL 12.0-16.0 Hematocrit 39 % 35-47 Mean Corpuscular Volume 87 um3 79-97 Mean Corpuscular Hemoglob 30 pg 27-31 Mean Corpuscular HGB Cone 34 g/dL 32-36 Redcell Distribution WDTH 13 % 10.5-15 Platelet Count 235 CUMM 150-450 Mean Platelet Volume 8.2 um3 7.4-10.4 Comp Metabolic Panel 11/07/2011 Sodium 141 mmol/L 135-145 Potassium 3.7 mmol/L 3.5-5.0 Chloride 104 mmol/L 101-111 Co2 (Carbon Dioxide) 30.0 mmol/L 22-32 Anion Gap 7.0 mmol/L 2-11 31 Glucose 113 mg/dL High 70-100 BUN 15 mg/dL 6-24 Creatinine 0.9 mg/dL 0.50-1.40 One Over Creatinine 1.11 BUN/Creatinine Ratio 16.7 8-20 Calcium 9.2 mg/dL 8.1-9.9 Total Protein 6.9 GM/DL 6.2-8.1 Albumin 4.2 GM/DL 3.6-5.4 Globulin 2.7 GM/DL 2-4 Albumin/Globulin Ratio 1.6 1-3 Bilirubin Total 0.6 mg/dL 0.4-1.5 32 Alkaline Phosphatase 80 U/L 30-110 Alt (SGPT) 18 U/L 14-54 Ast (Sgot) 19 U/L 12-42 eGFR Non- 66.0 > 60 eGFR 84.9 > 60 33 Laboratory test finding 11/07/2011 TSH 3.45 MIU/ML 0.34-5.60 CBC Auto Diff 11/07/2011 White Blood Count 6.5 CUMM 4.8-10.8 Red Cell Count 4.47 CUMM 4.2-5.4 Hemoglobin 13.3 g/dL 12.0-16.0 Hematocrit 39 % 35-47 Mean Corpuscular Volume 87 um3 79-97 Mean Corpuscular Hemoglob 30 pg 27-31 Mean Corpuscular HGB Cone 34 g/dL 32-36 Redcell Distribution WDTH 13 % 10.5-15 Platelet Count 235 CUMM 150-450 Mean Platelet Volume 8.2 um3 7.4-10.4 Manual Differential 11/07/2011 Polysegmented Neutrophil 61 % 38-83 Lymphocyte 32 % 25-47 Monocyte 5 % 0-13 Eosinophil 2 % 0-6 Absolute Neutrophil Count 3.9 RBC Morphology NORMAL Factor 5 Leiden Mutation 11/07/2011 Factor 5 Leiden Mut Result Negative Negative Factor 5 Leiden Mut Interp . 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 () 36 Reviewed By Kulwant Pierson <SEE NOTE> () 37 1 Test Performed by: [facility] - [address] [id number] 2 ADDITIONAL INFORMATION This test has been modified from the title assistant's instructions. Its performance characteristics were determined by [facility] in a manner consistent with CLIA requirements. This test has not been cleared or approved by the U.S. Food and Drug Administration. Test Performed by: [facility] - [address] [address] 3 LOOKING FOR HERPES 1 2 4 SEE RESULT BELOW Name: YADI PUTNAM : [address]: Consuelo Geiger NP Acct: [id number] Unit: [id number] AGE: 58 Location: [facility] Re06/26/18 SEX: F Status: REG REF SPEC: [id number] GAYLA: 06/26/18-[address]: Consuelo Geiger NP REQ: [id number] RECD: 06/27/18-1024 STATUS: COMP _ SOURCE: VAGINAL SPDESC: ORDERED: Genital Culture COMMENTS: LOOKING FOR HERPES 1 2 Procedure Result Reported Site Genital Culture Final 06/29/18- 1140 ML Organism 1 ESCHERICHIA COLI Quantity 3+ Organism 2 NORMAL CATY Quantity 1+ Routine genital cultures do not include selective agar for Neisseria gonorrhoeae. Molecular testing offers better test sensitivity and therefore is the preferred test methodology for identifying this organism. 1. ESCHERICHIA COLI M.I.C. RX --------- ------ Ampicillin >=32 R Cefazolin <=4 S Cefepime <=1 S Ceftriaxone <=1 S Ciprofloxacin <=0.25 S Gentamicin <=1 S Levofloxacin 1 S Meropenem <=0.25 S Tetracycline >=16 R Pipercillin/Tazobactam <=4 S Trimethoprim/Sulfamethoxazole >=320 R Amoxicillin/Clavulanic Acid 4 S Aztreonam <=1 S CONTINUED ON NEXT PAGE DEPARTMENT OF PATHOLOGY, [address] [place] [address] Fredrick Guevara M.D. Director [facility] # [id number] Patient: YADI PUTNAM [id number] (Continued) Specimen: [id number] Collected: 06/26/18-1049 Received: 06/27/18-1024 (Continued) Procedure Result Reported Site Genital Culture Final (continued) Contact the Microbiology Department for any additional antibiotic reporting. * ЮЛИЯ - Main Lab . END OF REPORT DEPARTMENT OF PATHOLOGY, [address] [place] [address] Fredrick Guevara M.D. Director [facility] # [id number] 5 SEE RESULT BELOW Name: YADI PUTNAM : [address]: Consuelo Geiger NP Acct: [id number] Unit: [id number] AGE: 57 Location: [facility] Re07/02/17 SEX: F Status: REG REF SPEC: [id number] GAYLA: 07/02/[address]: Consuelo Geiger NP REQ: [id number] RECD: 07/02/17 STATUS: COMP _ SOURCE: URINE SPDESC: ORDERED: Urine Culture COMMENTS: [id number] Urine Source: Random Procedure Result Reported Site Urine Culture Final 07/04/17- 926 ML No Growth (<1,000 CFU/mL) * ML - MAIN LAB ([facility]) . END OF REPORT * ML=Testing performed at Main Lab DEPARTMENT OF PATHOLOGY, [address] [place] [address] Fredrick Guevara M.D. Director [facility] # [id number] 6 Because ethnic data is not always readily available, this report includes an eGFR for both -Americans and non- Americans. The National Kidney Disease Education Program (NKDEP) does not endorse the use of the MDRD equation for patients that are not between the ages of 18 and 70, are , have extremes of body size, muscle mass, or nutritional status, or are non- or non-. According to the National Kidney Foundation, irrespective of diagnosis, the stage of the disease is based on the level of kidney function: Stage Description GFR(mL/min/1.73 m(2)) 1 Kidney damage with normal or decreased GFR 90 2 Kidney damage with mild decrease in GFR 60-89 3 Moderate decrease in GFR 30-59 4 Severe decrease in GFR 15-29 5 Kidney failure <15 (or dialysis) 7 Acute inflammation: >10.00 8 [facility] Severe Sepsis and Septic Shock Management Bundle Measure requires all lactic acids initially measuring >2.0 mmol/L be repeated. 9 It is recognized that currently available assays for the detection of antibodies to HIV-1 and/or HIV-2 may not detect all infected individuals. HIV antibodies may be undetectable in some stages of the infection and in some clinical conditions. The performance of this assay has not been established for populations of infants or children. Assayed by Chemiluminescence Microparticle Immunoassay on the Siemens Advia Centaur CP. Values obtained with different methods or kits cannot be used interchangeably.The diagnostic specificity of the ADVIA Centaur 1/O/2 Enhanced assay in the low risk population was 99.90% (6052/6058) with a 95% confidence interval of 99.78 to 99.96%. 10 It is recognized that currently available assays for the detection of antibodies to HIV-1 and/or HIV-2 may not detect all infected individuals. HIV antibodies may be undetectable in some stages of the infection and in some clinical conditions. The performance of this assay has not been established for populations of infants or children. Assayed by Chemiluminescence Microparticle Immunoassay on the Siemens Advia Centaur CP. Values obtained with different methods or kits cannot be used interchangeably.The diagnostic specificity of the ADVIA Centaur 1/O/2 Enhanced assay in the low risk population was 99.90% (6052/6058) with a 95% confidence interval of 99.78 to 99.96%. 11 Warning: A positive result is not useful for establishing a diagnosis of syphilis. In most situations, such a result may reflect a prior treated infection; a negative result can exclude a diagnosis of syphilis except for incubating or early primary disease. 12 PT IS FASTING 13 Desirable <150 Borderline high 150-199 High 200-499 Very High >500 14 Desirable <200 Borderline high 200-239 High >239 15 Low <40 Desirable: 40-60 High: >60 16 Desirable: <100 mg/dL Near Optimal: 100-129 mg/dL Borderline High: 130-159 mg/dL High: 160-189 mg/dL Very High: >189 mg/dL 17 Because ethnic data is not always readily available, this report includes an eGFR for both -Americans and non- Americans. The National Kidney Disease Education Program (NKDEP) does not endorse the use of the MDRD equation for patients that are not between the ages of 18 and 70, are , have extremes of body size, muscle mass, or nutritional status, or are non- or non-. According to the National Kidney Foundation, irrespective of diagnosis, the stage of the disease is based on the level of kidney function: Stage Description GFR(mL/min/1.73 m(2)) 1 Kidney damage with normal or decreased GFR 90 2 Kidney damage with mild decrease in GFR 60-89 3 Moderate decrease in GFR 30-59 4 Severe decrease in GFR 15-29 5 Kidney failure <15 (or dialysis) 18 Comment: s 19 Reference Range and Interpretation: TnI (ng/mL) Interpretation Less Than 0.03 ng/mL Not supportive of diagnosis of OH 0.03 - 0.50 ng/mL Indeterminate: suggest serial studies if clinically indicated. Greater than 0.5 ng/mL Consistent with diagnosis of OH 20 Because ethnic data is not always readily available, this report includes an eGFR for both -Americans and non- Americans. The National Kidney Disease Education Program (NKDEP) does not endorse the use of the MDRD equation for patients that are not between the ages of 18 and 70, are , have extremes of body size, muscle mass, or nutritional status, or are non- or non-. According to the National Kidney Foundation, irrespective of diagnosis, the stage of the disease is based on the level of kidney function: Stage Description GFR(mL/min/1.73 m(2)) 1 Kidney damage with normal or decreased GFR 90 2 Kidney damage with mild decrease in GFR 60-89 3 Moderate decrease in GFR 30-59 4 Severe decrease in GFR 15-29 5 Kidney failure <15 (or dialysis) 21 Reference Range and Interpretation: TnI (ng/mL) Interpretation Less Than 0.03 ng/mL Not supportive of diagnosis of OH 0.03 - 0.50 ng/mL Indeterminate: suggest serial studies if clinically indicated. Greater than 0.5 ng/mL Consistent with diagnosis of OH 22 RUN DATE: 12/23/14 [facility] LAB LIVE PAGE 1 RUN TIME: [address] [place], [place] [address] Specimen Inquiry Name: YADI PUTNAM : [address]: Consuelo Geiger NP Acct: [id number] Unit: [id number] AGE: 54 Location: [facility] Re12/22/14 SEX: F Status: REG REF SPEC: [id number] GAYLA: 12/22/[address]: Consuelo Geiger NP REQ: [id number] RECD: 12/22/14 STATUS: SOUT _ ORDERED: IMAGE ANALYSIS, HPV/Thin Prep, HPV 16/18 GENE FINAL DIAGNOSIS Negative for Intraepithelial lesion or Malignancy A. Ectocervical/Endocervical Specimen Adequacy: Satisfactory of evaluation Transformation zone component identified Patient Information: HPV: High risk HPV RNA testing regardless of pap results. HPV 16/18 Genotype for HPV pos Actual Specimen Date: 12/22/14 ?: N Post Menopausal?: Y Hysterectomy?: N Previous Abnormal Pap Smears?:N Date Time Test Result Flag (u) Normal Range 12/22/14 1647 HPV RNA RFLX GE Negative Negative The high-risk HPV types detected by the assay include: 16, 18, 31, 33, 35, 39, 45, 51, 52, 56, 58, 59, 66, and 68. Signed (signature on file) AngeloDESHAUN Meyer(ASCP) 1540 This Pap test was evaluated with the assistance of the ThinPrep Test Imaging System. Due to cytologic findings at the board catcher microscope, comprehensive manual rescreening by a Meat Cutter may be required. The Pap Smear is a screening test designed to aid in the detection of premalignant and malignant conditions of the uterine cervix. It is not a diagnostic procedure and should not be used as the sole means of detecting cervical cancer. Both false- positive and false- negative reports do occur. Depending on your risk status, a Pap smear should be obtained and evaluated every 1-3 years. END OF REPORT * ML=Testing performed at Main Lab DEPARTMENT OF PATHOLOGY, [address] [place] [address] Fredrick Guevara M.D. Director [facility] # [id number] 23 The high-risk HPV types detected by the assay include: 16, 18, 31, 33, 35, 39, 45, 51, 52, 56, 58, 59, 66, and 68. 24 FASTING 25 Because ethnic data is not always readily available, this report includes an eGFR for both -Americans and non- Americans. The National Kidney Disease Education Program (NKDEP) does not endorse the use of the MDRD equation for patients that are not between the ages of 18 and 70, are , have extremes of body size, muscle mass, or nutritional status, or are non- or non-. According to the National Kidney Foundation, irrespective of diagnosis, the stage of the disease is based on the level of kidney function: Stage Description GFR(mL/min/1.73 m(2)) 1 Kidney damage with normal or decreased GFR 90 2 Kidney damage with mild decrease in GFR 60-89 3 Moderate decrease in GFR 30-59 4 Severe decrease in GFR 15-29 5 Kidney failure <15 (or dialysis) 26 Desirable <150 Borderline high 150-199 High 200-499 Very High >500 27 Desirable <200 Borderline high 200-239 High >239 28 Low <40 Desirable: 40-60 High: >60 29 Desirable: <100 mg/dL Near Optimal: 100-129 mg/dL Borderline High: 130-159 mg/dL High: 160-189 mg/dL Very High: >189 mg/dL 30 ---- RUN DATE: 11/20/11 [facility] NMI LIVE PAGE 1 RUN TIME: 1443 Specimen Inquiry RUN USER: INTERFACE -- Name: YADI PUTNAM Accmarcelo#: [id number] Status: REG REF Re11/19/11 Age/Sex: 51/F Unit#: [id number] Location: [facility] : 60 -- Specimen: [id number] SOUT Spec Date: 11/19/[address]: Consuelo PHAMP Spec Type: CYTOLOGY Received: 11/20/11-1016 Copies to: SOURCE ECTOCERVICAL/ENDOCERVICAL Thin Prep with Reflex HPV Test PATIENT INFORMATION ACTUAL COLLECTION DATE: 11/19/11 ? No POST MENOPAUSAL? No HYSTERECTOMY? No PREVIOUS ABNORMAL PAP SMEARS No PATIENT HISTORY: Last menstrual period at age 41 ADEQUACY OF SPECIMEN Satisfactory for evaluation * Transformation zone component cannot be definitely identified due to prese nce * of atrophy or other hormonal changes. * DIAGNOSIS NEGATIVE FOR INTRAEPITHELIAL LESION OR MALIGNANCY * This Pap test was evaluated with the assistance of the ThinPrep Pap Test Imaging System. The Pap Smear is a screening test designed to aid in the detection of premalign ant and malignant conditions of the uterine cervix. It is not a diagnostic procedure a nd should not be used as the sole means of detecting cervical cancer. Both false- positiv e and false-negative reports do occur. Depending on your risk status, a Pap smear david uld be obtained and evaluated every one to three years. Initial evaluation performed by Jemima PEREZ(ASC) 11/20/11 Final Interpretation electronically signed by: Jemima PEREZ(ASCP) 11/20/11 1443 -- DEPARTMENT OF PATHOLOGY, [address] [place] [address] [facility] Permit #[id number] Fredrick Guevara M.D. Director Livia Chakraborty M.D. Social Director Dir armida -- 31 Anion gap measurement may be of limited value in the presence of any alkalosis, especially in a combined acid base disorder. . 32 A metabolite of Naproxen, O-desmethylnaproxen, has been shown to interfere with the Jendrassik-Jeff method for measuring total bilirubin. Samples from patients who have taken Naproxen have shown spurious elevation in total bilirubin levels. 33 Because ethnic data is not always readily available, this report includes an eGFR for both -Americans and non- Americans. The National Kidney Disease Education Program (NKDEP) does not endorse the use of the MDRD equation for patients that are not between the ages of 18 and 70, are , have extremes of body size, muscle mass, or nutritional status, or are non- or non-. According to the National Kidney Foundation, irrespective of diagnosis, the stage of the disease is based on the level of kidney function: Stage Description GFR(mL/min/1.73 m(2)) 1 Kidney damage with normal or decreased GFR 90 2 Kidney damage with mild decrease in GFR 60-89 3 Moderate decrease in GFR 30-59 4 Severe decrease in GFR 15-29 5 Kidney failure <15 (or dialysis) 34 This individual DOES NOT have the factor V Leiden (R506Q) mutation. Although the factor V Leiden mutation is absent, the individual may have other genetic and environmental risk factors for thrombosis. If clinically indicated, suggest Coagulation Consultation 55362 (Thrombophilia Profile) to complete the evaluation for an inherited or acquired thrombosing disorder (i.e., thrombophilia). This test is a direct mutation analysis of leukocyte genomic DNA by the Invader Assay system (Invader, [employer], [place], [place]). Analyte Specific Reagent. This test was developed and its performance characteristics determined by [facility]. It has not been cleared or approved by the U.S. Food and Drug Administration. 35 Jone Sagastume M.D. Test Performed by: [facility] Dpt of Lab Med and Pathology [address] [place], [place] [address] Circle Shear Operator: Brown Garcias III, M.D. 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 The Prothrombin Y09100N mutation is a risk factor for venous thromboembolism and recurrent miscarriage, and possibly a risk factor for complications of and for arterial thrombosis. The individual may have other genetic and environmental risk factors for thrombosis. If clinically indicated, suggest Coagulation Consultation 32657 (Thrombophilia Profile) to complete the evaluation for an inherited or acquired thrombosing disorder (i.e., thrombophilia). Consider genetic consultation and counseling of potentially affected family members regarding laboratory testing. This test is a direct mutation analysis of leukocyte genomic DNA by the Invader Assay system (Invader, [employer], [place], [place]). Analyte Specific Reagent. This test was developed and its performance characteristics determined by [facility]. It has not been cleared or approved by the U.S. Food and Drug Administration. 37 Jone Sagastume M.D. Test Performed by: [facility] Dpt of Lab Med and Pathology [address] [place] [address] Circle Shear Operator: Brown Garcias III, M.D. Procedures Date CPT Code Description Status 11/27/2016 Mammogram Completed 05/10/2015 52186 Polysomnography Sleep Staging 4+ Parameters W/Cpap Completed 01/10/2015 Mammogram Completed 01/06/2013 05350 EKG Tracing & Interpretation Completed 11/29/2011 Mammogram Completed 09/15/2010 Diabetic Foot Exam Completed 06/28/2010 Mammogram Completed 03/03/2010 Colonoscopy Completed 01/13/2009 Bone Mineral Density Test Completed 01/13/2009 Mammogram Completed 06/23/2007 82145 Holter Monitor Review (24 hr)dr review & interp only Completed 06/18/2007 77329 EKG Tracing & Interpretation Completed Encounters Type Date Location Provider CPT E/M Dx Office Visit 03/12/2018 [facility] Internal Medicine Consuelo Geiger, N.P. 89396 R07.89 11:40a - [place] Office Visit 12/10/2017 Pulmonology And Sleep Fatemeh Foster, 30842 G47.33 2:00p Services Of [facility] RYAN MEJIA, LICENSING COURT MAGISTRATE- Office Visit 07/02/2017 [facility] Internal Medicine Consuelo Geiger N.P. 15556 R30.0 2:40p - [place] N39.0 M25.542 Office Visit 06/27/2017 10:20a [facility] Internal Medicine Consuelo Geiger N.P. 03359 R10.84 - [place] Office Visit 06/14/2017 9:00a [facility] Internal Medicine Consuelo Geiger N.P. 66665 K29.00 - [place] R94.5 R14.0 Z11.4 Z11.3 Office Visit 06/05/2017 4:00p [facility] [place] [address] L57.0 D23.71 D23.5 R60.0 B35.3 L56.8 L85.3 Office Visit 05/20/2017 2:40p [facility] Internal Medicine Consuelo Geiger, N.P. 30324 R68.84 - [place] Office Visit 05/01/2017 8:30a Orthopedic Services Mary Alejandro, 84773 M77.11 Of [facility] [place] S63.511A Office Visit 11/23/2016 4:20p [facility] Internal Medicine Consuelo Geiger, N.P. 31004 Z11.3 - [place] Office Visit 09/21/2016 3:20p [facility] Internal Medicine Consuelo Geiger, N.P. 91033 Z00.01 - [place] Z12.31 G47.33 G47.00 R94.5 Office Visit 07/15/2015 3:15p Pulmonology And Sleep Fatemeh Foster, [address]47[address] [facility] RYAN MEJIA, LICENSING COURT MAGISTRATE- Office Visit 07/04/2015 2:20p [facility] [place] [address] J06.9 - [place] Office Visit 06/03/2015 3:30p Pulmonology [place] [address] [address] [facility] Office Visit 02/02/2015 11:00a [facility] [place] [address] 465.8 - [address] 465.9 Office Visit 01/27/2015 2:00p Pulmonology [place] [address] [address] [facility] 780.52 Office Visit 12/22/2014 3:20p [facility] Internal Medicine Consuelo Geiger, N.P. 03664 V70.0 - [place] V72.31 V76.10 311 780.52 780.79 Office Visit 08/02/2014 4:20p [facility] Internal Medicine Consuelo Geiger, N.P. 28354 709.9 - [place] 465.9 Office Visit 09/11/2013 3:40p [facility] Internal Medicine Consuelo Geiger, N.P. 23277 461.9 - [place] Office Visit 08/28/2013 10:40a [facility] Internal Medicine Consuelo Geiger, N.P. 42954 465.9 - [place] Office Visit 04/27/2013 9:00a [facility] Internal Medicine Leslie Ruvalcaba M.D., 65181 E905.3 - [place] FACP 682.3 Office Visit 01/06/2013 2:40p [facility] Internal Medicine Alexandre Zaarte, 15312 789.06 - Dom Thomas 784.1 Office Visit 01/01/2013 10:00a [facility] Internal Medicine Phyllis Ceballos, N.P. 54684 719.48 - [place] Office Visit 11/27/2012 4:20p [facility] Internal Medicine Leslie Ruvalcaba M.D., 92434 V41.1 - [place] FACP Office Visit 07/03/2012 3:00p [facility] Internal Medicine Leslie Ruvalcaba M.D., 61665 466.0 - [place] FACP Office Visit 04/02/2012 4:20p [facility] Internal Medicine Leslie Ruvalcaba M.D., 63718 380.4 - [place] FACP 311 Office Visit 01/14/2012 11:20a [facility] Internal Medicine Consuelo Varn, N.P. 76502 782.1 - [place] Office Visit 11/19/2011 1:40p [facility] Internal Medicine Consuelo Varn, N.P. 31377 V70.0 - [place] V72.31 V76.10 311 780.52 286.3 386.11 Office Visit 11/13/2011 2:20p [facility] Internal Medicine Consuelo Varn, N.P. 92153 286.9 - [place] 799.52 780.52 Office Visit 10/31/2011 1:00p [facility] Internal Medicine Consuelo Varn, N.P. 08448 799.52 - [place] V18.3 Office Visit 05/10/2011 11:00a DO Not Use Consuelo Varn, 89942 300.00 [employer] N.P. 599.0 Office Visit 08/02/2010 1:30p DO Not Use Consuelo Varn, 25067 782.1 [employer] N.P. Office Visit 07/24/2010 4:15p DO Not Use Consuelo Varn, 36106 757.39 [employer] N.P. Office Visit 03/28/2010 1:15p DO Not Use Consuelo Varn, 16981 462 [employer] N.P. 727.06 727.43 Office Visit 02/10/2010 1:30p DO Not Use Consuelo Varn, 79097 715.91 [employer] N.P. 726.10 Office Visit 01/27/2010 2:00p DO Not Use Consuelo Varn, 53609 V72.31 [employer] N.P. 719.61 Office Visit 06/03/2009 10:30a DO Not Use Consuelo Varn, 57073 346.90 [employer] N.P. 780.79 Office Visit 01/15/2008 8:45a DO Not Use [employer] Consuelo Varn, N.P. 37236 462 726.32 719.46 Office Visit 12/19/2007 4:30p DO Not Use [employer] [facility] Leslie Ruvalcaba, 17346 616.10 William, FACP 780.52 Office Visit 10/24/2007 4:00p DO Not Use [employer] [facility] Consuelo Varn, 31884 486 N.P. Office Visit 10/06/2007 11:30a DO Not Use [employer] Consuelo Varn, 11566 486 N.P. Office Visit 10/01/2007 10:15a DO Not Use [employer] [facility] Consuelo Varn, 90490 486 N.P. Office Visit 09/26/2007 2:15p DO Not Use [employer] [facility] Consuelo Varn, 47802 486 N.P. Office Visit 09/22/2007 2:00p DO Not Use [employer] Consuelo Varn, 99427 780.6 N.P. 780.79 Office Visit 07/09/2007 3:15p DO Not Use Consuelo Varn, 50773 616.10 [employer] N.P. 786.50 Office Visit 06/18/2007 2:45p DO Not Use [employer] [facility] Consuelo Varn, 46764 785.1 N.P. 786.50 V05.4 V06.1 Office Visit 04/18/2007 1:00p DO Not Use [employer] [facility] Leslie Ruvalcaba M.D., 47199 462 FACP 530.81 Office Visit 04/11/2007 2:15p DO Not Use Consuelo Varn, 58999 462 [employer] [facility] N.P. Office Visit 12/11/2006 8:30a DO Not Use Consuelo Varn, 91401 462 [employer] [facility] N.P. Office Visit 11/27/2006 9:45a DO Not Use Consuelo Varn, 43765 733.90 [employer] N.P. Office Visit 09/13/2006 10:15a DO Not Use Consuelo Varn, 62443 V72.31 [employer] N.P. Office Visit 08/21/2006 8:30a DO Not Use Consuelo Varn, 25616 780.52 [employer] N.P. Office Visit 07/31/2006 8:30a DO Not Use Consuelo Varn, [address] [facility]-Dom N.P. Plan of Care 07/15/2018 - Consuelo Geiger, N.P.Z00.00 Encntr for general adult medical exam w/ o abnormal findingsComments:For your routine health maintenance: I encourage you to continue with regular exercise and healthy nutrition. Your colonoscopy is up to date. You had this in 2009. You will need this repeated in 2020. You have received your Tetanus immunization today. Your arm may be sore for a few days. This is good for 10 years. It also protects you from getting Pertussis, ( whooping cough).Z12.31 Encntr screen mammogram for malignant neoplasm of breastNew Xrays:Mammogram Screening BilComments:I have ordered your routine screening mammogram. The imaging department will give you your results at the time of your visit. I encourage you to do self exams. If you should notice any masses or thickening, please give the office a call.G47.33 Obstructive sleep apnea (adult) (pediatric)Comments:For your sleep apnea continue your management with the sleep clinic.F32.9 Major depressive disorder, single episode , unspecifiedComments:For your depression: Continue with your current management. If you should feel your depression is not well managed at any point , please give the office a call.Z01.419 Encntr for business intelligence architect exam (general) (routine) w/o abn findingsNew Medication:Vagifem 10 mcgNew Labs:CytologyComments:You have had your pap smear today.The office will contact you with the results. If this is normal I will repeat it in 3 years. For your vaginal dryness I have prescribed Vagifem. Insert 1 tablet intravaginally, twice weekly.R94.5 Abnormal results of liver function studiesComments:To follow up on your elevated liver enzymes I have ordered labs. I also want to check your cholesterol. Be sure to fast for 10 hours prior to getting your blood drawn.I will contact you with your results.
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
[2018-08-07 12:22] VITALS: BP 142/75
== END | disposition home or self-care (01) ==
LOC: ED 08:38
DX: S06.0X9A Concussion with loss of consciousness of unspecified duration, initial encounter (principal); S16.1XXA Strain of muscle, fascia and tendon at neck level, initial encounter; V47.5XXA Car driver injured in collision with fixed or stationary object in traffic accident, initial encounter; Y92.488 Other paved roadways as the place of occurrence of the external cause; M50.30 Other cervical disc degeneration, unspecified cervical region; M47.812 Spondylosis without myelopathy or radiculopathy, cervical region; Z91.030 Bee allergy status; Z88.0 Allergy status to penicillin; Z88.2 Allergy status to sulfonamides; Z88.8 Allergy status to other drugs, medicaments and biological substances; Z91.018 Allergy to other foods
CPT/HCPCS: 70450; 72125; 99282; A9270-GY

== ENCOUNTER 2018-10-10 17:03 | Emergency (ER) | payer BC ==
[2018-10-10 17:12] VITALS: BP 132/56
--- NOTE | 2018-10-10 17:47 | UC ---
Complaint Female HPI - HPI Summary HPI Summary: 58-year-old woman comes to clinic today with chief complaint of burning with urination and urinary urgency. This started earlier on today. She did have some urinary symptoms yesterday she took Diflucan which did not improve her symptoms. Discomfort is worse with urination. Less with no urination. Denies any abdominal pain or flank pain. Denies any fevers. - History Of Current Complaint Chief Complaint: UCGU Stated Complaint: URINARY COMPLAINT Time Seen by Provider: 10/10/18 17:19 Pain Intensity: 9 - Allergies/Home Medications Allergies/Adverse Reactions: Allergies Allergy/AdvReac Type Severity Reaction Status Date / Time amoxicillin Allergy Rash Verified 10/10/18 17:12 niacin Allergy Flushing Verified 10/10/18 17:12 Penicillins Allergy Rash Verified 10/10/18 17:12 pineapple Allergy Itching Verified 10/10/18 17:12 Sulfa (Sulfonamide Allergy Rash Verified 10/10/18 17:12 Antibiotics) honeydew Allergy Intermediate throat Uncoded 10/10/18 17:12 itchy bees Allergy local Uncoded 10/10/18 17:12 reaction Home Medications: Home Medications Fluconazole 100 MG TAB* [Diflucan 100 MG TAB*] PRN 10/10/18 [History] Med For Adhd* 10/10/18 [History] PMH/Surg Hx/FS Hx/Imm Hx Previously Healthy: Yes - Surgical History Surgical History: Yes Surgery Procedure, Year, and Place: csection, D/C. lasik - Family History Known Family History: Positive: Other - No FHx IBS, Crohn's or ulcerative colitis - Social History Alcohol Use: Occasionally Substance Use Type: Marijuana Smoking Status (MU): Never Smoked Tobacco Review of Systems All Other Systems Reviewed And Are Negative: Yes Constitutional: Positive: Negative Skin: Positive: Negative Eyes: Positive: Negative ENT: Positive: Negative Respiratory: Positive: Negative Cardiovascular: Positive: Negative Gastrointestinal: Positive: Negative Genitourinary: Positive: Dysuria, Frequency, Urgency Motor: Positive: Negative Neurovascular: Positive: Negative Musculoskeletal: Positive: Negative Neurological: Positive: Negative Psychological: Positive: Negative Is Patient Immunocompromised?: No Physical Exam Triage Information Reviewed: Yes Appearance: Well-Appearing, No Pain Distress, Well-Nourished Vital Signs: Initial Vital Signs Temp 96.5 F 10/10/18 17:08 Pulse 63 10/10/18 17:08 Resp 16 10/10/18 17:08 BP 132/56 10/10/18 17:08 Pulse Ox 100 10/10/18 17:08 Vital Signs Reviewed: Yes Eye Exam: Normal Eyes: Positive: Conjunctiva Clear Neck exam: Normal Neck: Positive: Supple Respiratory: Positive: Lungs clear, Normal breath sounds, No respiratory distress Cardiovascular: Positive: RRR Abdomen Description: Positive: Nontender, Soft. Negative: CVA Tenderness (R), CVA Tenderness (L) Bowel Sounds: Positive: Present Musculoskeletal Exam: Normal Musculoskeletal: Positive: Strength Intact, ROM Intact Neurological Exam: Normal Neurological: Positive: Alert, Muscle Tone Normal Psychological Exam: Normal Psychological: Positive: Age Appropriate Behavior Skin Exam: Normal Complaint Female Dx - Course Course Of Treatment: We will treat with Macrobid as the patient is allergic to penicillin and sulfa. Also sent a prescription for Diflucan as the patient says she usually gets a vaginal yeast infection when she takes antibiotics. We discussed that if condition worsens or she has other questions or concerns she needs to get reevaluated right away. - Differential Dx/Diagnosis Provider Diagnosis: UTI (urinary tract infection) Discharge - Sign-Out/Discharge Documenting (check all that apply): Patient Departure All imaging exams completed and their final reports reviewed: No Studies - Discharge Plan Condition: Stable Disposition: HOME Prescriptions: Fluconazole 150 MG TAB* [Diflucan 150 MG TAB*] 150 mg PO ONCE #2 tablet Nitrofurantoin Monohyd/M-Cryst [Macrobid 100 mg Capsule] 100 mg PO BID #14 cap Patient Education Materials: Urinary Tract Infection in Women (ED) Referrals: Consuelo Gegier NP [Primary Care Provider] - Additional Instructions: FOLLOW UP WITH YOUR DOCTOR IF NOT COMPLETELY IMPROVED. GET RECHECKED FOR ANY WORSENING OF YOUR CONDITION OR QUESTIONS OR CONCERNS. - Billing Disposition and Condition Condition: STABLE Disposition: Home
== END 2018-10-10 17:56 | disposition home or self-care (01) ==
LOC: UCEAST 17:03
DX: N39.0 Urinary tract infection, site not specified (principal); Z88.0 Allergy status to penicillin; Z88.8 Allergy status to other drugs, medicaments and biological substances; Z88.2 Allergy status to sulfonamides; Z91.030 Bee allergy status; Z91.018 Allergy to other foods
CPT/HCPCS: 81003; 87077; 87086; 87186; 99212; G0463